=== PATIENT | male | born 1935 | race Caucasian/White ===

== ENCOUNTER 2018-03-25 08:32 | Outpatient (CLI) | payer MEDICARE, BC, SELFPAY ==
[2018-03-25 10:39] LABS: Abs Immature Grans 0.01 k/cumm (0.0-0.09); Absolute Basophil Count 0.03 k/cumm (0.0-0.2); Absolute Eosinophil Count 0.09 k/cumm (0.0-0.7); Absolute Lymphocyte Count 2.15 k/cumm (1.2-3.4); Absolute Monocyte Count 0.55 k/cumm (0.11-0.7); Absolute Neutrophil Count 3.18 k/cumm (1.2-6.7); Basophils % 0.5; Eosinophils % 1.5; HCT 41.8 % (40.0-50.0); HGB 14.1 g/dL (13.5-17.5); Immature Grans % 0.2; Lymphocytes % 35.8; Mean Corp. HGB Concentration 33.7 g/dL (32.0-36.0); Mean Corpuscular Hemoglobin 31.8 pg (27.0-33.0); Mean Corpuscular Volume 94.1 fL (80-95); Mean Platelet Volume 12.2 fL (8.0-11.0); Monocytes % 9.2; Neutrophils % 52.8; Platelet Count 160 x1000/uL (130-400); RBC 4.44 m/cumm (4.50-6.00); White Blood Cell Count 6.01 k/cumm (4.4-10.8)
[2018-03-25 11:10] LABS: ALT 43 U/L (12-78); AST 32 U/L (15-37); Albumin 3.7 g/dL (3.4-5.0); Alkaline Phosphatase 94 U/L (46-116); Anion Gap 9.8 mmol/L (3-11); BUN 18 mg/dL (7-18); CO2 28.2 mmol/L (21.0-32.0); CREATININE 1.14 mg/dL (0.70-1.30); Calcium 9.1 mg/dL (8.5-10.1); Chloride 104 mmol/L (98-107); Cholesterol 105 mg/dL (50-200); Glucose 107 mg/dL (70-100); HDL Cholesterol 35 mg/dL (40-60); LDL CHOLESTEROL 52 mg/dL (<100); Potassium 4.3 mmol/L (3.5-5.1); Sodium 142 mmol/L (136-145); Total Protein 6.7 g/dL (6.4-8.2); Triglyceride 103 mg/dL (30-150)
== END 2018-03-25 08:52 ==
PROVIDERS: Family Medicine; PCP Internal Medicine; Visit Provider Internal Medicine
DX: R41.3 Other amnesia (principal); I10 Essential (primary) hypertension; E78.5 Hyperlipidemia, unspecified; I25.10 Atherosclerotic heart disease of native coronary artery without angina pectoris; I65.29 Occlusion and stenosis of unspecified carotid artery; N52.9 Male erectile dysfunction, unspecified
CPT/HCPCS: 36415; 80053; 80061; 83721; 85025

== ENCOUNTER 2019-06-10 10:57 | Emergency (ER) | payer MEDICARE, BC, SELFPAY ==
[2019-06-10] VITALS (39 sets, daily range): BP systolic 110–157; BP diastolic 50–73; PULSE 57–85; RESP 13–23; TEMP 36.4–36.6; O2SAT 93–99
--- NOTE | 2019-06-10 11:00 | DI.RAD_ITS ---
EXAM: XR PORTABLE CHEST AP CLINICAL HISTORY: stemi TECHNIQUE: 2D digital imaging was performed. COMPARISON: CHEST 2 VIEWS PA,LAT from 04/13/2010 FINDINGS: MEDIASTINUM: Normal. HEART: Normal. PULMONARY VASCULATURE: Normal. LUNGS: Scarring in the right lower lung field. No focal consolidating infiltrates. PLEURAL SPACE: No pleural effusion or pneumothorax. BONE:Normal. OTHER FINDINGS:Sternal wires and mediastinal clips. IMPRESSION: No acute pulmonary findings. DATA REPOSITORY: RADIATION DOSE DELIVERED:
--- NOTE | 2019-06-10 11:09 | W.ED.GENAD ---
Discharge Plan Disposition Patient Disposition: ARIELLA OCHOA ([facility]) Condition: Serious Discharge Details Chief Complaint: Chest Pain Clinical Impression: Unstable angina, Chest pain Primary Care Provider: Lowell Middleton ED Provider: Karlo Larson Home Meds and New Rx's Prescriptions: No Action aspirin [Ecotrin] 325 MG tablet,delayed release (DR/EC) 1 tab PO DAILY RF: 0 metoprolol succinate [Toprol XL] 50 mg tablet extended release 24 hr 50 mg PO DAILY Qty: 90 RF: 3 terazosin 5 mg capsule 5 mg PO DAILY Qty: 90 RF: 3 atorvastatin [Lipitor] 80 mg tablet 80 mg PO HS Qty: 90 RF: 1 Discharge Data Discharge Date/Time-TO BE ENTERED AT DEPARTURE: 06/10/19 14:30 Medical Decision Making Upon my evaluation, this patient had a high probability of imminent or life-threatening deterioration, which required my direct attention, intervention, and personal management. I have personally provided 45 minutes of critical care time exclusive of time spent on separately billable procedures. Time includes review of laboratory data, radiology results, discussion with consultants, and monitoring for potential decompensation. Interventions were performed as documented. 84-year-old male with a past medical history of hypertension high cholesterol who presents today for evaluation of chest pain. Patient does have a history of CABG in the past, today he was out working, and while exerting himself he developed notable chest pain which he felt very similar to his last STEMI, but much worse. He sat down, and after a fair bit of rest he began feeling much better. EMS was called, upon their arrival initial EKG was unremarkable, aspirin was given, no nitroglycerin was given. Subsequent EKG, and then subsequent third EKG by triage licensed practical nurse both showed notable atypical findings concerning for cardiac ischemia. Patient was brought to the ER for further management. Currently states that he is completely chest pain-free, feels fine, would be comfortable going home. He denies any tearing or ripping sensation. He denies any syncope. He denies any numbness tingling or weakness. Pain is located in the center of his chest. As well as the epigastric region which he describes as burning. He denies any vomiting. He has no other complaints at this time. Physical exam demonstrates a well-appearing male, in no acute distress at this time. No significant chest pain currently. He did receive full dose aspirin by EMS. EKG is concerning for Wellens type II, but is not indicative of STEMI at this time, however I am concerned for STEMI equivalent. With no current active chest pain, not meeting criteria for active STEMI we will hold on TNKase at this time, however we will consult [facility] cardiology for emergent recommendations. A do feel that he would benefit from cardiac catheterization on an urgent basis for further management. Of note bedside ultrasound is notably limited, difficult to achieve complete view, but there does appear to be wall motion defect noted in the left ventricle, and at the apex. Patient additionally does state that over the last 2 to 3 months he has been having increased shortness of breath and chest pain/epigastric pain associated with exertion. He states that regularly he will be out shoveling, get notable pain, have to take a break and rest, the pain goes away with this rest, and then returns as soon as he began shoveling significantly again. 11:30 AM Case was discussed with [facility], I spoke with Dr. Uribe of cardiology, she did review the EKG, they do have an EKG from 2012 which she feels is very similar to the EKG from today. She would recommend getting troponins, and discussion of the case with our local awning craftsman Dr. Dao. Since the patient is chest pain-free at this time, we will continue in his work-up. [facility] cardiology does not recommend transfer at this time. At this time the patient's symptoms appearing inconsistent with dissection. We will continue to monitor closely. 12:42 PM Patient remains chest pain-free, however I did get a repeat EKG and this seems to be a notable increase in hyperacute T wave changes especially in V2 through V4. There also does appear to be increase in elevation for lead III, as well as aVF. There is also notable depression continued in aVL. I do feel that these changes are concerning. We have not yet received a call back from dr Dao as he has not yet in the office, however with these findings I will touch base with [facility] again, they do feel that the patient would benefit from transfer and evaluation at a tertiary care facility, including potential catheterization. 1:32 PM I did contact [facility] again, and I spoke with the nurse practitioner Arpita, discussed the case as well as my concern, this time she does feel that admission would be warranted but currently [facility] does not have any beds available. With the patient's dynamic changes, I do feel that prompt evaluation is indicated. She does recommend heparinization but holding off on Plavix loading at this time. We did reach out to the [facility], I discussed the case with Dr. Reynoso, he agrees with the history and concerning findings, and does recommend transfer to the [facility]. Patient will be transferred via triage licensed practical nurse to [facility] for further definitive evaluation and management. He remains chest pain-free at this time. Heparin will be started. I have extensively reviewed the treatment plan with the patient. I have addressed all patient concerns at this time. I have also discussed the plan with the admitting physician and they agree with the current assessment and plan and have agreed to assume responsibility for the patient. All parties demonstrate verbal understanding and agreement with our assessment and plan at this time. At time of transfer the patient was reassessed and continued to demonstrate current medical stability. No signs of acute respiratory distress requiring intubation, hemodynamic instability requiring pressor support, or rapidly declining mental status. The patient is stable for transport. EKG 11: 01 Rate 81, sinus rhythm, intervals normal, nonspecific ST abnormalities with diffuse T wave inversions in V2 through V6, less than a millimeter ST elevation in lead III and aVF, 1 mm of depression in aVL with associated T wave inversion. Concerning for Wellens type II with associated inferior abnormalities EKG 12: 17 Rate 62, intervals normal, sinus rhythm, 1 mm of elevation in V1, notable T wave inversion and depression in HPI General Date/Time Provider Initiated Documentation: 06/10/19 11:09. HPI Narrative: 84-year-old male with a past medical history of hypertension high cholesterol who presents today for evaluation of chest pain. Patient does have a history of CABG in the past, today he was out working, and while exerting himself he developed notable chest pain which he felt very similar to his last STEMI, but much worse. He sat down, and after a fair bit of rest he began feeling much better. EMS was called, upon their arrival initial EKG was unremarkable, aspirin was given, no nitroglycerin was given. Subsequent EKG, and then subsequent third EKG by triage licensed practical nurse both showed notable atypical findings concerning for cardiac ischemia. Patient was brought to the ER for further management. Currently states that he is completely chest pain-free, feels fine, would be comfortable going home. He denies any tearing or ripping sensation. He denies any syncope. He denies any numbness tingling or weakness. Pain is located in the center of his chest. As well as the epigastric region which he describes as burning. He denies any vomiting. He has no other complaints at this time. Related Data Home Medications Medication Instructions Recorded Confirmed aspirin [Ecotrin] 1 tab PO DAILY 07/21/12 06/10/19 metoprolol succinate 50 mg 50 mg PO DAILY #90 tab 02/21/19 06/10/19 tablet,extended release 24 hr terazosin 5 mg capsule 5 mg PO DAILY #90 tab-cap 03/27/19 06/10/19 atorvastatin 80 mg tablet 80 mg PO HS #90 tab-cap 04/21/19 06/10/19 Previous Rx's Medication Instructions Recorded metoprolol succinate 50 mg 50 mg PO DAILY #90 tab 02/21/19 tablet,extended release 24 hr terazosin 5 mg capsule 5 mg PO DAILY #90 tab-cap 03/27/19 atorvastatin 80 mg tablet 80 mg PO HS #90 tab-cap 04/21/19 Allergies Allergy/AdvReac Type Severity Reaction Status Date / Time codeine AdvReac DIZZY/LIGHT Unverified 06/10/19 11:07 HEADED General Stated Complaint: Chest Pain MIGUEL ANGEL: 2 Review of Systems All systems reviewed & are unremarkable except as noted in HPI and below PFSH Surgical History (Updated 01/16/18 @ 14:34 by memloom [place]) AORTOCORNARY BYPASS (~1987) CAROTID ENDARERECTOMY (~2009) Colonoscopy - MAC (~2006) NEG Extraction of cataract B/L Stent placement (~2010) CAD Family History Mother No problems noted. Father No problems noted. Sister No problems noted. Brother No problems noted. Son No problems noted. Daughter No problems noted. Social History (Updated 03/07/18 @ 12:11 by Aylin Oconnor) Smoking/Tobacco Use Status: Former Tobacco Use Quit Date: 04/02/99 Alcohol Intake: current Alcohol Intake frequency: a few times a month Alcohol type: beer, wine and hard liquor Drug use: Never Substance use type: does not use Pets and animals: Yes Pets and animals: cat(s) Frequency: does not exercise Yamile/Episcopal: No preference Special yamile needs: No Do you feel safe at home: Yes Do you feel safe in your relationship?: Yes Exam Narrative Exam Narrative: 1.Const: Well-nourished, Well-developed, appearing stated age 2.Eyes: PERRL, no conjunctival injection, and symmetrical lids. 3.ENT: Atraumatic external nose and ears. Moist MM. Neck: Symmetric, trachea midline, No thyromegaly. 4.CVS: +S1/S2, No murmurs or gallops. Peripheral pulses 2+ and equal in all extremities. Brisk capillary refill in all extremities. 5.RESP: Unlabored respiratory effort. Clear to auscultation bilaterally. No wheezes rales or rhonchi 6.GI: Soft, Nontender/Nondistended, No hepatosplenomegaly. No guarding or rebound. No epigastric tenderness, no pulsatile abdominal mass. 7.MSK: Normocephalic/Atraumatic, Extremities w/o deformity or ttp No cyanosis or clubbing, Normal movement of all extremities 8.Skin: Warm, Dry. No rashes or lesions. 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 Sensation grossly intact, no focal neurologic deficits. 10.Psych: (AAO) x3. Appropriate mood and affect Course Vital Signs Vital signs: Vital Signs Temperature 36.4 C L 06/10/19 10:58 Pulse 85 06/10/19 10:58 Respiratory Rate 14 06/10/19 10:58 Blood Pressure 153/50 H 06/10/19 10:58 Pulse Oximetry 99 06/10/19 10:58 Temperature 36.4 C L 06/10/19 10:58 Temperature Source Temporal Artery Scan 06/10/19 10:58 Pulse 85 06/10/19 10:58 Respiratory Rate 14 06/10/19 10:58 Respiratory Effort Non-Labored 06/10/19 11:02 Blood Pressure 153/50 H 06/10/19 10:58 Blood Pressure Position Supine 06/10/19 10:58 Pulse Oximetry 99 06/10/19 10:58 Oxygen Delivery Method Room Air 06/10/19 10:58 Oxygen Flow Rate 0 06/10/19 10:58 Pain Level 0 06/10/19 10:58
[2019-06-10 11:34] LABS: INR 1.1 (0.9-1.1); PTT Activated 32.1 sec (21.0-31.4); Prothrombin Time 10.6 sec (9.3-11.0)
[2019-06-10 11:51] LABS: ALT 36 U/L (16-63); AST 31 U/L (15-37); Albumin 3.5 g/dL (3.4-5.0); Alkaline Phosphatase 92 U/L (46-116); Anion Gap 6.6 mmol/L (3-11); BUN 17 mg/dL (7-18); Bilirubin, Total 0.6 mg/dL (0.2-1.0); CO2 29.4 mmol/L (21.0-32.0); CREATININE 1.23 mg/dL (0.70-1.30); Calcium 8.5 mg/dL (8.5-10.1); Chloride 105 mmol/L (98-107); Glucose 162 mg/dL (74-106); Lipase 118 U/L (73-393); NT-proBNP 469 pg/mL (<300); Potassium 3.9 mmol/L (3.5-5.1); Sodium 141 mmol/L (136-145); Total Protein 6.8 g/dL (6.4-8.2); Troponin I < 0.05 ng/Ml (<0.06)
[2019-06-10 13:21] LABS: Abs Immature Grans 0.03 k/cumm (0.0-0.09); Absolute Basophil Count 0.02 k/cumm (0.0-0.2); Absolute Eosinophil Count 0.08 k/cumm (0.0-0.7); Absolute Monocyte Count 0.64 k/cumm (0.11-0.7); Absolute Neutrophil Count 3.73 k/cumm (1.2-6.7); Basophils % 0.3; Eosinophils % 1.3; HCT 41.4 % (40.0-50.0); HGB 13.8 g/dL (13.5-17.5); Immature Grans % 0.5 %; Lymphocytes % 29.7; Mean Corp. HGB Concentration 33.3 g/dL (32.0-36.0); Mean Corpuscular Hemoglobin 31.4 pg (27.0-33.0); Mean Corpuscular Volume 94.3 fL (80-95); Mean Platelet Volume 12.3 fL (8.0-11.0); Neutrophils % 58.2; Platelet Count 175 x1000/uL (130-400); RBC 4.39 m/cumm (4.50-6.00); RBC Distribution Width 12.9 % (11.8-14.1)
[2019-06-10 14:20] LABS: Troponin I 0.22 ng/Ml (<0.06)
--- NOTE | 2019-06-10 14:40 | NUR.NOTE ---
Nursing Note: PT report transferred to Cecilia (cupola charger nurse) [facility]. All Pt care, information, treatments, and interventions transferred at this time.
== END 2019-06-10 14:30 | disposition short-term general hospital (02) ==
PROVIDERS: Emergency Provider Student in an Organized Health Care Education/Training Program; PCP Family Medicine
DX: I20.0 Unstable angina (principal); R10.13 Epigastric pain; I10 Essential (primary) hypertension; E78.5 Hyperlipidemia, unspecified; R94.31 Abnormal electrocardiogram [ECG] [EKG]; Z95.1 Presence of aortocoronary bypass graft; I25.2 Old myocardial infarction
CPT/HCPCS: 36415; 80053; 83690; 93005; 96365; 96376; 99291; 71045; 83880; 84484; 85025; 85610; 85730; 93010

== ENCOUNTER 2021-02-11 13:24 | Outpatient (REF) | payer MEDICARE, BC, SELFPAY ==
[2021-02-11 21:31] LABS: BUN 20 mg/dL (7-18); Calcium 8.9 mg/dL (8.5-10.1); Glucose 178 mg/dL (74-106)
[2021-02-11 21:32] LABS: Anion Gap 9.9 mmol/L (3-11); CO2 26.1 mmol/L (21.0-32.0); CREATININE 1.1 mg/dL (0.70-1.30); Calculated LDL 38 mg/dL (<100); Chloride 106 mmol/L (98-107); Cholesterol 111 mg/dL (<200); HDL Cholesterol 33 mg/dL (40-60); Potassium 3.8 mmol/L (3.5-5.1); Sodium 142 mmol/L (136-145); Triglyceride 204 mg/dL (<150)
== END 2021-02-11 13:25 | disposition home or self-care (01) ==
LOC: LBN 13:24
PROVIDERS: PCP Family Medicine; Visit Provider Family Medicine
DX: I10 Essential (primary) hypertension (principal); E78.5 Hyperlipidemia, unspecified; Z00.00 Encounter for general adult medical examination without abnormal findings
CPT/HCPCS: 80048; 80061

== ENCOUNTER 2021-04-15 14:02 | Outpatient (REF) | payer MEDICARE, BC, SELFPAY ==
[2021-04-17 15:43] LABS: COVID-19 RT-PCR UVMMC Result Negative (Negative)
== END 2021-04-15 14:03 | disposition home or self-care (01) ==
LOC: LBN 14:02
PROVIDERS: PCP Family Medicine; Visit Provider Nurse Practitioner
DX: J02.9 Acute pharyngitis, unspecified (principal); Z20.822 Contact with and (suspected) exposure to COVID-19
CPT/HCPCS: U0003; 87070

== ENCOUNTER → 2021-09-29 01:34 | Outpatient (CLI) | payer MEDICARE, BC, SELFPAY ==
--- NOTE | 2021-09-29 06:45 | DI.US_ITS ---
Exam(s) US CAROTID EXAM: US CAROTID CLINICAL HISTORY: f/u carotid stenosis,I65.29. TECHNIQUE: Ultrasound carotids performed using grayscale, color-flow, and spectral Doppler imaging. COMPARISON: No exams were available for comparison FINDINGS: RIGHT CAROTID ARTERY: Plaque: Atherosclerosis present in the carotid bulb and the internal carotid artery. Velocity elevation: See below. LEFT CAROTID ARTERY: Plaque: Calcific plaque seen in the proximal ECA and ICA. Velocity elevation: None. VERTEBRAL ARTERIES: Antegrade flow. Measurements: R Bulb: 442.5cm/s PS / 49.2cm/s ED R CCA: 45.6cm/s PS / 8.4cm/s ED R ECA: 439.6cm/s PS / 34.7cm/s ED R ICA Prox: 43.1cm/s PS /6.3cm/s ED R ICA Mid: Undetectable. R ICA Distal: Undetectable. Eight that R Vert: 53.3cm/s PS / 12.9cm/s ED R SVR: 0.95 R DVR: 0.75 L Bulb: 124.7cm/s PS /8.4cm/s ED L CCA: 106cm/s PS / 12.2cm/s ED L ECA: 156.2cm/s PS /4.3cm/s ED L ICA Prox:108.7cm/s PS / 25.5cm/s ED L ICA Mid: 131.5cm/sPS / 36.8cm/s ED L ICA Distal: 154.6cm/s PS / 26.3cm/s ED L Vert: 75.2cm/s PS / 14.9cm/s ED L SVR: 1.46 L DVR: 2.16 IMPRESSION: 1. No detectable flow seen beyond the proximal right internal carotid artery. 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 2. Findings suggestive of 50-69 percent narrowing of the left internal carotid artery. Criteria for Carotid Stenosis: Normal: ICA PSV <125 cm/s no plaque or intimal thickening is visible. <50% stenosis: ICA PSV <125 cm/s and plaque or intimal thickening is visible. 50-69% stenosis: ICA PSV is 125-250 cm/s and plaque is visible. >70% stenosis to near occlusion: ICA PSV >250 cm/s with visible plaque and luminal narrowing. DATA REPOSITORY:
== END ==
PROVIDERS: PCP Family Medicine; Visit Provider Family Medicine
DX: I65.23 Occlusion and stenosis of bilateral carotid arteries (principal)
CPT/HCPCS: 93880

== ENCOUNTER 2022-02-02 02:59 | Outpatient (CLI) | payer MEDICARE, BC, SELFPAY ==
[2022-02-02 12:39] LABS: Anion Gap 6.7 mmol/L (3-11); BUN 21 mg/dL (7-18); CO2 29.3 mmol/L (21.0-32.0); CREATININE 1.2 mg/dL (0.70-1.30); Calcium 9.2 mg/dL (8.5-10.1); Calculated LDL 53 mg/dL (<100); Chloride 106 mmol/L (98-107); Cholesterol 120 mg/dL (<200); Estimated GFR 59.26 (mL/min/1.73m2); Glucose 137 mg/dL (74-106); HDL Cholesterol 38 mg/dL (40-60); Potassium 3.9 mmol/L (3.5-5.1); Sodium 142 mmol/L (136-145); Triglyceride 145 mg/dL (<150)
== END 2022-02-02 03:00 | disposition home or self-care (01) ==
LOC: LOS 02:59
PROVIDERS: PCP Family Medicine; Visit Provider Family Medicine
DX: E78.5 Hyperlipidemia, unspecified (principal); Z00.00 Encounter for general adult medical examination without abnormal findings; I10 Essential (primary) hypertension
CPT/HCPCS: 36415; 80048; 80061

== ENCOUNTER 2022-06-04 09:48 | Emergency (ER) | payer MEDICARE, SELFPAY ==
[2022-06-04] VITALS (199 sets, daily range): BP systolic 111–171; BP diastolic 48–110; PULSE 60–72; RESP 11–29; TEMP 36.3; O2SAT 91–100
--- NOTE | 2022-06-04 09:45 | DI.RAD_ITS ---
Exam(s) XR PORTABLE CHEST AP EXAM: XR PORTABLE CHEST AP CLINICAL HISTORY: chest pain. TECHNIQUE: 2D digital imaging was performed. COMPARISON: CR XR PORTABLE CHEST AP from 06/10/2019 FINDINGS: Single AP portable view. Sternotomy wires and evidence of CABG again noted. Cardiac pad over the left side of the chest. Heart size is upper normal. The mediastinum is not widened. Lungs are clear. No infiltrates nor obvious pleural effusions. No evidence of pulmonary edema. No pneumothorax. IMPRESSION: No acute pulmonary findings on this single AP portable view of the chest. Previous sternotomy and CABG. DATA REPOSITORY: RADIATION DOSE DELIVERED:
--- NOTE | 2022-06-04 09:45 | RT.EKG_ITS ---
APPROVED REPORT Exam: Resting ECG Reason for Exam: chest pain Patient Location: E HR:67 bpm ECG Measurements Heart Rate 67 AXIS NV 156 P 20 QRSd 90 QRS 17 QT 428 T 145 QTc 453 Conclusion Sinus rhythm...normal P axis, V-rate 60- 99 Probable left atrial enlargement...P >50mS, <-0.10mV V1 Repol abnrm suggests ischemia, diffuse leads...ST-T neg, ant/lat/inf sinus rhythm, normal axis, biphasic V3, deep inverted T waves lateral lead, with depressions; mild el evation lead III
--- NOTE | 2022-06-04 09:59 | W.ED.GENAD ---
Discharge Plan Disposition Patient Disposition: Transfer-Acute Inpatient Care Specific Acute Inpt Facility: [facility] [[email or web address]] Condition: Stable Discharge Details Chief Complaint: Chest Pain Clinical Impression: Ventricular tachycardia, Chest pain Primary Care Provider: Keira Grande ED Provider: Sergio Contreras Home Meds and New Rx's Prescriptions: No Action aspirin [Ecotrin] 325 MG tablet,delayed release (DR/EC) 1 tab PO DAILY terazosin 5 mg capsule 5 mg PO DAILY Qty: 90 3RF metoprolol succinate [Toprol XL] 50 mg tablet extended release 24 hr 50 mg PO DAILY Qty: 90 3RF atorvastatin [Lipitor] 80 mg tablet 80 mg PO HS Qty: 90 3RF Medical Decision Making 87-year-old male history of CABG presents with anterior chest pain over the last day worsening this morning, nonexertional nonradiating no associated shortness of breath nausea or vomiting. Hemodynamically stable however mildly uncomfortable. EKG showing deep T wave inversions 1 aVL T wave inversions and ST depressions in V4 V5 V6 and biphasic T waves in V3 concerning for lateral ischemia high clinical suspicion for ACS lower suspicion for PE or aortic pathology pneumothorax or pneumonia. Stat chest x-ray labs aspirin pending first troponin will likely start heparin, have placed urgent call to [facility] cardiology for possible transfer for intervention. Disposition pending reassessment results reassessment of symptomatology and consultation with cardiology. 11: 05 patient has had multiple rounds of sustained ventricular tachycardia lasting several seconds at a time has maintained mental status and blood pressure however does have some presyncopal sensations, placed on pads, loaded with 150 amiodarone IV over 10 minutes and started on 1 adalid per minute IV infusion, have discussed case with [facility] curriculum coordinator Dr. Perez who is in contact with interventionalists team to discuss further treatment plan. Have had goals of care discussion with both patient and patient's family patient is full code and amenable to interventions are currently working on securing transportation options as [employer] is not flying today due to weather. 14: 00 patient resting comfortably remains hemodynamically stable. Intermittent PVCs however no further runs of V. tach after starting amiodarone. Patient was preliminarily accepted at [facility] for admission however bed availability may not be available for another 24 hours per transfer center for this reason I placed a consultation to [facility] [[email or web address]] where patient had his initial CABG years past, spoke with curriculum coordinator Dr. Schneider who recommends ER to ER transfer discussed case with ER physician Dr. Peralta who is excepted transfer. Family and patient amenable to transfer. Are calling for transportation currently. HPI General Date/Time Provider Initiated Documentation: 06/04/22 09:51. HPI Narrative: 87-year-old male history of CABG, hypertension hyperlipidemia, presents brought in for active chest pain over the last day worsening this morning upon waking up, nonexertional anterior nature, no associated diaphoresis or shortness of breath or nausea. Related Data Home Medications Medication Instructions Recorded Confirmed aspirin 325 mg tablet,delayed 1 tab PO DAILY 07/21/12 06/04/22 release (Ecotrin) terazosin 5 mg capsule 5 mg PO DAILY #90 tab-caps 03/30/21 06/04/22 metoprolol succinate 50 mg 50 mg PO DAILY #90 tabs 02/28/22 06/04/22 tablet,extended release 24 hr (Toprol XL) atorvastatin 80 mg tablet (Lipitor) 80 mg PO HS #90 tab-caps 04/17/22 06/04/22 Previous Rx's Medication Instructions Recorded terazosin 5 mg capsule 5 mg PO DAILY #90 tab-caps 03/30/21 metoprolol succinate 50 mg 50 mg PO DAILY #90 tabs 02/28/22 tablet,extended release 24 hr (Toprol XL) atorvastatin 80 mg tablet (Lipitor) 80 mg PO HS #90 tab-caps 04/17/22 Allergies Allergy/AdvReac Type Severity Reaction Status Date / Time codeine AdvReac DIZZY/LIGHT Verified 02/06/22 16:27 HEADED General MIGUEL ANGEL: 2 Review of Systems Narrative: Review of Systems Constitutional: negative Eyes: negative ENT: negative Cardiovascular: Chest pain Respiratory: negative Gastrointestinal: negative : negative Musculoskeletal: negative Skin: negative Neurologic: negative Psych: negative PFSH All Active Problems (Updated 06/04/22 @ 14:03 by Sergio Contreras MD) Ventricular tachycardia (Chronic) Chest pain (Acute) Memory impairment (Chronic) Hyperlipidemia (Acute 07/29/12) Essential hypertension (Acute 01/28/13) Depressive disorder (Acute) seasonal Benign prostatic hyperplasia without lower urinary tract symptoms (Chronic 07/29/12) Medical History Carotid artery stenosis endarterectomy-left Color vision deficiency red-green Coronary atherosclerosis of [place] coronary vessel (07/29/12) CABG 1981 AND A STENT 2009 History of tobacco use Surgical History (Updated 02/11/21 @ 10:45 by Keira Grande MD) History of cataract removal with insertion of prosthetic lens History of coronary artery bypass surgery Status post carotid endarterectomy Family History Mother No problems noted. Father No problems noted. Sister No problems noted. Brother No problems noted. Son No problems noted. Daughter No problems noted. Social History Smoking/Tobacco Use Status: Former Tobacco Use Quit Date: 04/02/99 Smoking risk assessment performed?: Yes Alcohol Intake: former Details: 1999 Drug use: Never Substance use type: does not use Household members: spouse Housing: house Number of Children: 8 number of grandchildren: 8 Education Level: high school current occupation: worked at [employer] x 25 yrs, then worked at [employer]. Pets and animals: Yes Pets and animals: cat(s) Frequency: does not exercise Yamile/Caodaism: No preference Special yamile needs: No Do you feel safe at home: Yes Do you feel safe in your relationship?: Yes Exam Narrative Exam Narrative: Physical Examination General: alert, awake, cooperative, resting comfortably, no acute distress HEENT: normocephalic, atraumatic; PERRL, EOM intact, conjunctiva normal; no nasal discharge; moist mucous membranes, oral and pharyngeal mucosa normal, tolerating secretions Neck: supple, trachea midline; full ROM Chest: normal to inspection; old midline sternotomy scar Respiratory: normal respiratory effort, speaking in full sentences, clear to auscultation, no wheezing, rales or rhonchi Cardiac: regular rate, regular rhythm, S1S2 intact, no murmurs rubs or gallops; regular strong radial pulses GI: abdomen soft, non-tender, non-distended; no palpable mass or hepatosplenomegaly Skin: no lesions, rashes or trauma appreciated Neuro: AAOx3, normal speech, moving all extremities Psych: Appropriate mood and affect
[2022-06-04 10:15] LABS: Abs Immature Grans 0.03 10^3/uL (0.0-0.06); Absolute Basophil Count 0.04 10^3/uL (0.0-0.2); Absolute Eosinophil Count 0.09 10^3/uL (0.0-0.7); Absolute Lymphocyte Count 2.61 10^3/uL (1.2-3.4); Absolute Monocyte Count 0.66 10^3/uL (0.1-0.8); Absolute Neutrophil Count 3.74 10^3/uL (1.2-6.7); Basophils % 0.6; Eosinophils % 1.3; HCT 41.2 % (40.0-50.0); HGB 13.7 g/dL (13.5-17.5); Immature Grans % 0.4; Lymphocytes % 36.4; MCH 31.5 pg (27.0-33.0); MCHC 33.3 % (32.0-36.0); MCV 95 fL (80-95); MPV 11.5 fL (8.0-11.0); Monocytes % 9.2; Neutrophils % 52.1; Platelet Count 171 10^3/uL (130-400); RBC 4.35 10^6/uL (4.36-5.78); RDW 12.6 % (11.8-14.1); RDW-SD 43.8 fL; WBC 7.17 10^3/uL (4.4-10.8)
--- NOTE | 2022-06-04 10:21 | NUR.NOTE ---
pt having runs of vtach on the monitor. MD aware and at bedside. defib pads placed on pt. pt continues to remain awake and alert.
[2022-06-04 10:29] LABS: PTT Activated 34.3 sec (21.5-31.9); Prothrombin Time 10.6 sec (9.3-11.0)
[2022-06-04] MEDS: Aspirin 81 MG CHEW 324 MG CH (10:29)
[2022-06-04] MEDS: Amiodarone 150 MG/3 ML VIAL IVP (10:30)
[2022-06-04 10:37] LABS: ALT 32 U/L (16-63); AST 27 U/L (15-37); Albumin 3.7 g/dL (3.4-5.0); Alkaline Phosphatase 100 U/L (46-116); BUN 19 mg/dL (7-18); Bilirubin, Total 0.6 mg/dL (0.2-1.0); CREATININE 1.3 mg/dL (0.70-1.30); Calcium 9.1 mg/dL (8.5-10.1); Chloride 106 mmol/L (98-107); Glucose 120 mg/dL (74-106); NT-proBNP 575 pg/mL (<300); Potassium 3.8 mmol/L (3.5-5.1); Sodium 142 mmol/L (136-145); Total Protein 7.1 g/dL (6.4-8.2); Troponin I < 50 ng/L (<or=60)
[2022-06-04] MEDS: Amiodarone in Dextrose 360 MG/200 ML BAG 33.333 MG IV (10:42)
--- NOTE | 2022-06-04 10:45 | RT.EKG_ITS ---
APPROVED REPORT Exam: Resting ECG Reason for Exam: repeat, recurrent v tach Patient Location: E HR:63 bpm ECG Measurements Heart Rate 63 AXIS NM 180 P 23 QRSd 99 QRS 25 QT 446 T 155 QTc 455 Conclusion Sinus rhythm...normal P axis, V-rate 60- 99 Probable left atrial enlargement...P >50mS, <-0.10mV V1 Repol abnrm, prob ischemia, anterolateral lds...ST dep, T neg, I aVL V2-V6 ST elevation, consider inferior injury...ST >0.08mV, II III aVF sinus rhythm, normal axis, deep t waves, lateral leads, st elevation III
--- NOTE | 2022-06-04 11:17 | DI.VRAD_ITS ---
PROCEDURE INFORMATION: Exam: XR Chest Exam date and time: 06/04/2022 10:32 AM Age: 87 years old Clinical indication: Pain; Other: Cp; Prior surgery; Surgery date: 6+ months TECHNIQUE: Imaging protocol: Radiologic exam of the chest. Views: 1 view. COMPARISON: CR XR PORTABLE CHEST AP 06/10/2019 11:11 AM FINDINGS: Lungs: Stable mild opacities in the right base may represent scar or atelectasis as they were present in 2019. No acute process Pleural spaces: Unremarkable. No pleural effusion. No pneumothorax. Heart/Mediastinum: Unremarkable. No cardiomegaly. Bones/joints: Median sternotomy IMPRESSION: Stable mild opacities in the right base may represent scar or atelectasis as they were present in 2019. No acute process Dictated and Authenticated by: Dom Arshad MD. Ordering:CALE Hill MD
[2022-06-04 13:14] LABS: Troponin I < 50 ng/L (<or=60)
--- NOTE | 2022-06-04 14:11 | NUR.NOTE ---
pt has remained stable after bolus of amiodarone and with an amiodarone drip currently infusing. pt states he feels better. pt has been continuously monitored
--- NOTE | 2022-06-05 07:14 | NUR.NOTE ---
Nursing Note: Accessed patient chart to determine how many EKG orders were in the chart from the ED. There was an outstanding EKG in ordered status. There are no EKG's in the [employer] system that are outstanding. EKG order was deleted.
== END 2022-06-04 14:35 | disposition short-term general hospital (02) ==
PROVIDERS: Emergency Provider Emergency Medicine; PCP Family Medicine
DX: I47.20 Ventricular tachycardia, unspecified (principal); I10 Essential (primary) hypertension; Z95.1 Presence of aortocoronary bypass graft; R07.9 Chest pain, unspecified
CPT/HCPCS: 80053; 93005; 71045; 83880; 84484; 85025; 85610; 85730; 93010; J3490

== ENCOUNTER 2022-09-11 12:52 | Outpatient (CLI) | payer MEDICARE, SELFPAY ==
--- NOTE | 2022-09-11 12:45 | RT.EKG_ITS ---
APPROVED REPORT Exam: Resting ECG Reason for Exam: cardiac evaluation Patient Location: O HR:62 bpm ECG Measurements Heart Rate 62 AXIS DE 150 P 22 QRSd 99 QRS 18 QT 442 T 141 QTc 449 Conclusion Sinus rhythm...normal P axis, V-rate 50- 99 Abnormal R-wave progression, early transition...QRS area>0 in V2 Inferior infarct, Left ventricular hypertrophy with repolarization abnormalities
== END 2022-09-11 12:53 | disposition home or self-care (01) ==
LOC: DI.CARD 12:52
PROVIDERS: PCP Family Medicine; Visit Provider Internal Medicine Cardiovascular Disease
DX: I10 Essential (primary) hypertension (principal); I25.10 Atherosclerotic heart disease of native coronary artery without angina pectoris; Z13.6 Encounter for screening for cardiovascular disorders
CPT/HCPCS: 93010

== ENCOUNTER → 2022-09-11 13:53 | Outpatient (BNVA) | payer MEDICARE, SELFPAY | PROVIDERS: PCP Family Medicine; Referring Provider Family Medicine; Visit Provider Internal Medicine Cardiovascular Disease | DX: R60.0 Localized edema (principal); Z95.810 Presence of automatic (implantable) cardiac defibrillator; I25.10 Atherosclerotic heart disease of native coronary artery without angina pectoris | CPT/HCPCS: 93005; 99203; 99214 ==

== ENCOUNTER 2023-01-17 09:25 | Outpatient (CLI) | payer MEDICARE, SELFPAY ==
--- NOTE | 2023-01-17 09:15 | RT.EKG_ITS ---
APPROVED REPORT Exam: Resting ECG Reason for Exam: VT Patient Location: O HR:51 bpm ECG Measurements Heart Rate 51 AXIS HI 58 P -5 QRSd 98 QRS 14 QT 463 T 142 QTc 427 Conclusion Sinus rhythm...normal P axis, V-rate 50- 99 Short HI interval...HI <110mS Abnormal R-wave progression, early transition...QRS area>0 in V2 LVH with secondary repolarization abnormality...multi-LVH criteria, abnrm ST-T Borderline ST elevation, inferior leads...ST >0.06mV, II III aVF Baseline wander in lead(s) V4
== END 2023-01-17 09:26 | disposition home or self-care (01) ==
LOC: DI.CARD 09:27
PROVIDERS: PCP Family Medicine; Visit Provider Physician Assistant
DX: I25.10 Atherosclerotic heart disease of native coronary artery without angina pectoris (principal); I47.20 Ventricular tachycardia, unspecified
CPT/HCPCS: 93010

== ENCOUNTER → 2023-01-17 09:32 | Outpatient (BNVA) | payer MEDICARE, SELFPAY | PROVIDERS: PCP Family Medicine; Referring Provider Family Medicine; Visit Provider Physician Assistant | DX: Z51.81 Encounter for therapeutic drug level monitoring (principal); Z79.899 Other long term (current) drug therapy; Z95.810 Presence of automatic (implantable) cardiac defibrillator; I47.20 Ventricular tachycardia, unspecified | CPT/HCPCS: 93005; 99214 ==

== ENCOUNTER → 2023-01-18 12:28 | Outpatient (BNVA) | payer MEDICARE, SELFPAY | PROVIDERS: PCP Family Medicine; Referring Provider Family Medicine; Visit Provider Internal Medicine Cardiovascular Disease | DX: I25.810 Atherosclerosis of coronary artery bypass graft(s) without angina pectoris (principal); I47.20 Ventricular tachycardia, unspecified; Z95.810 Presence of automatic (implantable) cardiac defibrillator; I10 Essential (primary) hypertension | CPT/HCPCS: 99213 ==

== ENCOUNTER 2023-07-18 07:46 | Outpatient (CLI) | payer MEDICARE, SELFPAY ==
--- NOTE | 2023-07-18 07:45 | RT.EKG_ITS ---
APPROVED REPORT Exam: Resting ECG Reason for Exam: CAD Patient Location: O HR:56 bpm ECG Measurements Heart Rate 56 AXIS TN 179 P 18 QRSd 100 QRS 17 QT 467 T 133 QTc 451 Conclusion Sinus rhythm...normal P axis, V-rate 50- 99 Abnormal R-wave progression, early transition...QRS area>0 in V2 Probable LVH with secondary repol abnrm...multiple LVH criteria ST elevation, consider inferior injury...ST >0.08mV, II III aVF Baseline wander in lead(s) V1,V3
== END 2023-07-18 07:47 | disposition home or self-care (01) ==
LOC: DI.CARD 07:47
PROVIDERS: PCP Family Medicine; Visit Provider Student in an Organized Health Care Education/Training Program
DX: I25.810 Atherosclerosis of coronary artery bypass graft(s) without angina pectoris (principal); I47.20 Ventricular tachycardia, unspecified; Z95.810 Presence of automatic (implantable) cardiac defibrillator
CPT/HCPCS: 93010

== ENCOUNTER → 2023-07-18 10:25 | Outpatient (BNVA) | payer MEDICARE, SELFPAY | PROVIDERS: PCP Family Medicine; Referring Provider Family Medicine; Visit Provider Student in an Organized Health Care Education/Training Program | DX: Z45.010 Encounter for checking and testing of cardiac pacemaker pulse generator [battery] (principal); I25.810 Atherosclerosis of coronary artery bypass graft(s) without angina pectoris | CPT/HCPCS: 93005; 93282 ==

== ENCOUNTER 2023-07-18 12:29 | Outpatient (CLI) | payer MEDICARE, SELFPAY ==
[2023-07-18 12:29] LABS: ALT 59 U/L (16-63); AST 40 U/L (15-37); Albumin 3.3 g/dL (3.4-5.0); Alkaline Phosphatase 112 U/L (46-116); BUN 22 mg/dL (7-18); Bilirubin, Direct 0.2 mg/dL (0.0-0.2); Bilirubin, Total 0.7 mg/dL (0.2-1.0); CREATININE 1.4 mg/dL (0.70-1.30); Calcium 8.4 mg/dL (8.5-10.1); Chloride 107 mmol/L (98-107); Estimated GFR 48.65 (mL/min/1.73m2); Glucose 136 mg/dL (74-106); Potassium 4.5 mmol/L (3.5-5.1); Sodium 142 mmol/L (136-145); TSH (W/Ref FT4) 0.61 uIU/mL (0.36-3.74); Total Protein 6.5 g/dL (6.4-8.2)
== END 2023-07-18 12:30 | disposition home or self-care (01) ==
LOC: LBO 12:29
PROVIDERS: PCP Family Medicine; Visit Provider Physician Assistant
DX: Z79.899 Other long term (current) drug therapy (principal); Z51.81 Encounter for therapeutic drug level monitoring
CPT/HCPCS: 36415; 80053; 80076; 84443

== ENCOUNTER → 2023-09-20 13:01 | Outpatient (BNVA) | payer MEDICARE, SELFPAY | PROVIDERS: PCP Family Medicine; Visit Provider Internal Medicine Cardiovascular Disease | DX: Z95.810 Presence of automatic (implantable) cardiac defibrillator (principal); I25.810 Atherosclerosis of coronary artery bypass graft(s) without angina pectoris | CPT/HCPCS: 99213 ==

== ENCOUNTER 2024-02-14 11:39 | Outpatient (CLI) | payer MEDICARE, SELFPAY ==
--- NOTE | 2024-02-14 13:16 | DI.CT_ITS ---
Exam(s) CT HEAD WO EXAM: CT HEAD WO CLINICAL HISTORY: new delirium G30.1 ALZHEIMERS F02.B0 DEMENTIA W19.XXXA FALL R41.0. TECHNIQUE: Imaging Protocol: Axial computed tomography images with coronal and sagittal reformatted images were created and reviewed COMPARISON: CT HEAD WITHOUT CONTRAST from 05/02/2010 FINDINGS: Ventricles and Extra axial spaces: Normal in size and morphology for the patient's age. Hemorrhage: None. Cerebral parenchyma: No evidence of acute infarct or mass. Moderate atrophy. Midline shift: None. Brainstem/Cerebellum: Normal. Calvarium: Normal. Visualized Paranasal sinuses:Clear. Mastoids: Clear. Soft Tissues: Unremarkable. ORBITS: Unremarkable. PITUITARY: Not enlarged. IMPRESSION: No acute intracranial process. RADIATION DOSE DELIVERED: 813.7mGy.cm Total DLP DATA REPOSITORY: All CT scans at this facility are submitted to the National Radiology Data Registry (NRDR) Dose Index Registry (DIR) with the [employer] (ACR). RADIATION OPTIMIZATION: All CT scans at this facility use at least one of these dose optimization te chniques: automated exposure control; mA and/or kV adjustment per patient size (includes targeted exa ms where dose is matched to clinical indication); or iterative reconstruction.
== END 2024-02-14 11:59 ==
LOC: DI 11:39
PROVIDERS: PCP Family Medicine; Visit Provider Family Medicine
DX: G30.1 Alzheimer's disease with late onset (principal); F02.B0 Dementia in other diseases classified elsewhere, moderate, without behavioral disturbance, psychotic disturbance, mood disturbance, and anxiety; W19.XXXA Unspecified fall, initial encounter
CPT/HCPCS: 70450

== ENCOUNTER 2024-03-19 07:47 | Outpatient (CLI) | payer MEDICARE, SELFPAY ==
--- NOTE | 2024-03-19 07:45 | RT.EKG_ITS ---
APPROVED REPORT Exam: Resting ECG Reason for Exam: CAD, VT Patient Location: O HR:54 bpm ECG Measurements Heart Rate [address] 167 P 8 QRSd 103 QRS 6 QT 460 T 147 QTc 436 Conclusion Sinus rhythm...normal P axis, V-rate 50- 99 Abnormal R-wave progression, early transition...QRS area>0 in V2 LVH with secondary repolarization abnormality...multi-LVH criteria, abnrm ST-T Borderline ST elevation, inferior leads...ST >0.06mV, II III aVF
== END 2024-03-19 07:48 | disposition home or self-care (01) ==
LOC: DI.CARD 07:48
PROVIDERS: PCP Family Medicine; Visit Provider Student in an Organized Health Care Education/Training Program
DX: I25.810 Atherosclerosis of coronary artery bypass graft(s) without angina pectoris (principal)
CPT/HCPCS: 93010

== ENCOUNTER → 2024-03-19 08:49 | Outpatient (BNVA) | payer MEDICARE, SELFPAY | PROVIDERS: PCP Family Medicine; Referring Provider Family Medicine; Visit Provider Student in an Organized Health Care Education/Training Program | DX: Z79.899 Other long term (current) drug therapy (principal); Z95.810 Presence of automatic (implantable) cardiac defibrillator; I25.810 Atherosclerosis of coronary artery bypass graft(s) without angina pectoris | CPT/HCPCS: 93005; 93282 ==

== ENCOUNTER 2024-03-19 10:22 | Outpatient (CLI) | payer MEDICARE, SELFPAY ==
[2024-03-19 12:21] LABS: ALT 64 U/L (16-63); AST 56 U/L (15-37); Albumin 3.2 g/dL (3.4-5.0); Alkaline Phosphatase 102 U/L (46-116); Anion Gap 7.2 mmol/L (3-11); BUN 25 mg/dL (7-18); Bilirubin, Direct 0.2 mg/dL (0.0-0.2); Bilirubin, Total 0.86 mg/dL (0.2-1.0); CO2 27.8 mmol/L (21.0-32.0); CREATININE 1.6 mg/dL (0.70-1.30); Calcium 8.7 mg/dL (8.5-10.1); Chloride 107 mmol/L (98-107); Estimated GFR 41.19 (mL/min/1.73m2); Glucose 95 mg/dL (74-106); Potassium 4.5 mmol/L (3.5-5.1); Sodium 142 mmol/L (136-145); TSH 0.59 uIU/mL (0.36-3.74); Total Protein 6.9 g/dL (6.4-8.2)
== END 2024-03-19 10:23 | disposition home or self-care (01) ==
LOC: LBO 10:22
PROVIDERS: PCP Family Medicine; Visit Provider Student in an Organized Health Care Education/Training Program
DX: Z79.899 Other long term (current) drug therapy (principal)
CPT/HCPCS: 36415; 80053; 80076; 84443

== ENCOUNTER 2024-05-28 10:22 | Emergency (ER) | payer MEDICARE, SELFPAY ==
[2024-05-28] VITALS (8 sets, daily range): BP systolic 111–183; BP diastolic 38–65; PULSE 47–54; RESP 14–16; TEMP 36.5; O2SAT 93–94
--- NOTE | 2024-05-28 10:15 | DI.CT_ITS ---
Exam(s) CT HEAD CERVICAL SPINE WO EXAM: CT HEAD CERVICAL SPINE WO CLINICAL HISTORY: fall, dizzy, unknown LOC. TECHNIQUE: Imaging Protocol: Axial computed tomography images with coronal and sagittal reformatted images were created and reviewed COMPARISON: CT CT HEAD WO from 02/14/2024 FINDINGS: Head CT Ventricles and Extra axial spaces: Normal in size and morphology for the patient's age. Hemorrhage: None. Cerebral parenchyma: No evidence of mass or acute infarct. Moderate atrophy consistent patient's a ge. Midline shift: None. Brainstem/Cerebellum: Normal. Calvarium: Normal. Visualized Paranasal sinuses/Mastoids: Clear. Soft tissues: Unremarkable. Cervical Spine CT BONES: Vertebral body heights are maintained. Alignment is normal. There is no evidence of acute frac ture. Degenerative disc changes and facet degenerative changes are seen . SOFT TISSUES: No paraspinal hematoma. The airway appears intact. IMPRESSION: Head CT: No acute abnormality. C-spine CT: Degenerative changes, no acute abnormality. RADIATION DOSE DELIVERED: 1,108.08mGy.cm Total DLP DATA REPOSITORY: All CT scans at this facility are submitted to the National Radiology Data Registry (NRDR) Dose Index Registry (DIR) with the [employer] (ACR). RADIATION OPTIMIZATION: All CT scans at this facility use at least one of these dose optimization te chniques: automated exposure control; mA and/or kV adjustment per patient size (includes targeted exa ms where dose is matched to clinical indication); or iterative reconstruction.
--- NOTE | 2024-05-28 10:15 | RT.EKG_ITS ---
APPROVED REPORT Exam: Resting ECG Reason for Exam: dizzy Patient Location: E HR:49 bpm ECG Measurements Heart Rate 49 AXIS DC 176 P 39 QRSd 100 QRS 33 QT 493 T 133 QTc 447 Conclusion Sinus bradycardia, rate 49 No interval abnormalities T wave inversion I, aVL, V5, V6, unchanged from priors No STEMI
[2024-05-28 10:53] LABS: Abs Immature Grans 0.03 10^3/uL (0.0-0.06); Absolute Basophil Count 0.03 10^3/uL (0.0-0.2); Absolute Eosinophil Count 0.07 10^3/uL (0.0-0.7); Absolute Lymphocyte Count 1.51 10^3/uL (1.2-3.4); Absolute Monocyte Count 0.68 10^3/uL (0.1-0.8); Absolute Neutrophil Count 3.67 10^3/uL (1.2-6.7); Basophils % 0.5 %; Eosinophils % 1.2 %; HCT 35.8 % (40.0-50.0); HGB 11.9 g/dL (13.5-17.5); Immature Grans % 0.5 %; Lymphocytes % 25.2 %; MCH 32.1 pg (27.0-33.0); MCHC 33.2 % (32.0-36.0); MCV 97 fL (80-95); MPV 11.9 fL (8.0-11.0); Monocytes % 11.4 %; Neutrophils % 61.2 %; Platelet Count 155 10^3/uL (130-400); RBC 3.71 10^6/uL (4.36-5.78); RDW 13.5 % (11.8-14.1); RDW-SD 47.6 fL; WBC 5.99 10^3/uL (4.4-10.8)
[2024-05-28 11:11] LABS: ALT 49 U/L (16-63); AST 42 U/L (15-37); Albumin 3.1 g/dL (3.4-5.0); Alkaline Phosphatase 103 U/L (46-116); Anion Gap 5.5 mmol/L (3-11); BUN 26 mg/dL (7-18); Bilirubin, Total 0.61 mg/dL (0.2-1.0); CO2 29.5 mmol/L (21.0-32.0); CREATININE 1.3 mg/dL (0.70-1.30); Calcium 8.8 mg/dL (8.5-10.1); Chloride 108 mmol/L (98-107); Estimated GFR 52.84 (mL/min/1.73m2); Glucose 102 mg/dL (74-106); Magnesium 2.1 mg/dL (1.8-2.4); Potassium 4.1 mmol/L (3.5-5.1); Sodium 143 mmol/L (136-145); Total Protein 6.4 g/dL (6.4-8.2); Troponin I 23 ng/L (<or=76)
--- NOTE | 2024-05-28 11:14 | W.ED.GENAD ---
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 -hb triamcinolone acetonide 0.5 % ointment 1 applic topical BID Qty: 15 1RF Rx Instructions: use bid for 2 weeks and then 1-2 times weekly thereafter. amiodarone 200 mg tablet 200 mg PO DAILY Qty: 30 5RF metoprolol tartrate 25 mg tablet 25 mg PO BID Qty: 180 3RF Rx Instructions: 06/23/22 RX'd by [facility]. -hb atorvastatin [Lipitor] 80 mg tablet 80 mg PO HS Qty: 90 3RF terazosin 5 mg capsule 5 mg PO DAILY Qty: 90 3RF Discharge Instructions Instructions: Preventing Falls ED Additional Instructions: You were seen in the emergency department today for evaluation after a fall. In our department you had a full physical examination performed, had laboratory studies that were reassuring, and an EKG that is typical for you. You had a CT scan of your brain and neck that did not show any abnormalities that explain your fall, and were able to get up and walk about the ED without issues. At this time it is safe for you to go home and follow-up with your outpatient providers to discuss this visit and any symptoms that change, worsen, or persist. Thank you for allowing us to be part of your care. HPI General Mode of arrival: EMS. Date/Time Provider Initiated Documentation: 05/28/24 10:27. Limitations to Documentation: no limitations. Information obtained by: patient, EMS and old records reviewed. HPI Narrative: HPI: Tim is an 89-year-old male patient who has a past medical history significant for pacemaker defibrillator, BPH, hypertension, CAD, and Alzheimer's who is presenting for evaluation after a fall. The patient was reported to have been sitting on the couch, is not sure how he fell from the couch but thinks he might of lost consciousness. He experienced an episode of dizziness, unclear if it was before or after this event. EMS was summoned and the patient was not complaining of any pain in his head, neck, or back. He is exceptionally hard of hearing. He states he was in his normal state of health prior to this event, has been taking all of his medications as prescribed, which include metoprolol and amiodarone, no blood thinning medications. Exam: Gen: awake and alert, in no apparent distress. Appears well nourished. HEENT: PERRL, EOMs full and without nystagmus. External ears and nose normal, mucous membranes moist. Neck: Supple, full range of motion, no observable masses Lungs: No increased work of breathing, lung sounds clear and equal bilaterally without wheezes, rhonchi, or rales. CV: Heart with bradycardic rate and regular rhythm, no murmurs auscultated. Strong and symmetrical radial pulses. Abdomen: Soft, nondistended, non-tended to palpation. No rigidity, rebound tenderness, or guarding. MSK: No joint swelling, no redness. Full ROM without limitation, no external traumatic findings. Skin: No rashes or lesions to visualized skin. Normal color, warm, and dry. Neuro: Cranial nerves II-XII intact and symmetrical bilaterally. 5/5 strength in all muscle groups x4 extremities. No sensory deficits. Psych: Appropriate for situation. MDM: This is an 89-year-old male patient presenting after a fall. Reassuringly, the patient is not complaining of any severe pain or injuries, though certainly I considered in my differential intracranial hemorrhage, skull fracture, cervical spine injury. I also considered metabolic and electrolyte derangements, kidney injury, anemia, vasovagal or orthostatic syndromes, arrhythmia, ACS. Will obtain a CT of the head and neck, will obtain laboratory studies to include CBC, CMP, magnesium, troponin, and an EKG. ED Course: I reviewed the patient's EKG, which shows a normal sinus rhythm with a right bundle branch block but no evidence of ischemia, arrhythmia, or excessive ectopy. Occasional PVCs appreciated. I independently interpreted the laboratory studies, which show no significant leukocytosis, does show a mild anemia but no thrombocytopenia. The chemistry panel is without evidence of electrolyte abnormality, kidney dysfunction, or liver injury. Troponin negative x 2 checks. I monitored the patient on telemetry and he did not have the development of any arrhythmias or other concerning hemodynamic findings. CT imaging of the head and spine were without acute traumatic injuries, the patient reports that he was symptom-free and road tested successfully without dizziness, or other symptoms. At this time, the patient has had a full medical evaluation and is safe for discharge to home. They are hemodynamically stable, ambulatory, and tolerating PO. They are understanding of the follow-up plan and return precautions. They left our facility without incident. Jamila Reyes MD Related Data Home Medications ?Medication ?Instructions ?Recorded ?Confirmed aspirin 81 mg tablet,delayed 81 mg PO DAILY 06/23/22 05/07/24 release triamcinolone acetonide 0.5 % 1 applic topical BID #15 grams 05/04/23 05/07/24 topical ointment gabapentin 100 mg capsule 200 mg (2 x 100 mg) PO BID #360 02/13/24 05/07/24 caps amiodarone 200 mg tablet 200 mg PO DAILY #30 tabs 03/13/24 05/07/24 atorvastatin 80 mg tablet (Lipitor) 80 mg PO HS #90 tab-caps 04/11/24 05/07/24 metoprolol tartrate 25 mg tablet 25 mg PO BID #180 tabs 04/11/24 05/07/24 terazosin 5 mg capsule 5 mg PO DAILY #90 tab-caps 05/12/24 Previous Rx's ?Medication ?Instructions ?Recorded triamcinolone acetonide 0.5 % 1 applic topical BID #15 grams 05/04/23 topical ointment gabapentin 100 mg capsule 200 mg (2 x 100 mg) PO BID #360 02/13/24 caps amiodarone 200 mg tablet 200 mg PO DAILY #30 tabs 03/13/24 atorvastatin 80 mg tablet (Lipitor) 80 mg PO HS #90 tab-caps 04/11/24 metoprolol tartrate 25 mg tablet 25 mg PO BID #180 tabs 04/11/24 terazosin 5 mg capsule 5 mg PO DAILY #90 tab-caps 05/12/24 Allergies Allergy/AdvReac Type Severity Reaction Status Date / Time codeine AdvReac DIZZY/LIGHT Verified 05/07/24 13:18 HEADED General Stated Complaint: Dizzy/Sync MIGUEL ANGEL: 3 Course Vital Signs Vital signs: Vital Signs Temperature 36.5 C 02/26/25 10:26 Pulse 50 L 05/28/24 10:26 Respiratory Rate 16 05/28/24 10:26 Blood Pressure 111/42 L 05/28/24 10: Pulse Oximetry 93 05/28/24 10:26 Temperature 36.5 C 05/28/24 10: Temperature Source Oral 05/28/24 10:26 Pulse 50 L 05/28/24 10:26 Respiratory Rate 16 05/28/24 10:26 Blood Pressure 111/42 L 05/28/24 10:26 Pulse Oximetry 93 05/28/24 10:26 Oxygen Delivery Method Room Air 05/28/24 10: Oxygen Flow Rate 0 05/28/24 10:26 Lab/Test Results Lab/Test Results: Laboratory Tests Range/Units 05/28/24 10:46 WBC (4.4-10.8) 10^3/uL 5.99 RBC (4.36-5.78) 10^6/uL 3.71 L Hgb (13.5-17.5) g/dL 11.9 L Hct (40.0-50.0) % 35.8 L MCV (80-95) fL 97 H MCH (27.0-33.0) pg 32.1 MCHC (32.0-36.0) % 33.2 RDW (11.8-14.1) % 13.5 Plt Count (130-400) 10^3/uL 155 MPV (8.0-11.0) fL 11.9 H Immature Gran % % 0.5 Neutrophils % % 61.2 Lymphocytes % % 25.2 Monocytes % % 11.4 Eosinophils % % 1.2 Basophils % % 0.5 Nucleated RBC % (0.0-0.3) % 0.0 Absolute Neutrophils (1.2-6.7) 10^3/uL 3.67 Absolute Lymphocytes (1.2-3.4) 10^3/uL 1.51 Absolute Monocytes (0.1-0.8) 10^3/uL 0.68 Absolute Eosinophils (0.0-0.7) 10^3/uL 0.07 Absolute Basophils (0.0-0.2) 10^3/uL 0.03 Sodium (136-145) mmol/L 143 Potassium (3.5-5.1) mmol/L 4.1 Chloride (98-107) mmol/L 108 H Carbon Dioxide (21.0-32.0) mmol/L 29.5 Anion Gap (3-11) mmol/L 5.5 BUN (7-18) mg/dL 26 H Creatinine (0.70-1.30) mg/dL 1.3 Est GFR (CKD-EPI 2020) (mL/min/1.73m2) 52.84 Glucose (74-106) mg/dL 102 Calcium (8.5-10.1) mg/dL 8.8 Magnesium (1.8-2.4) mg/dL 2.1 Total Bilirubin (0.2-1.0) mg/dL 0.61 AST (15-37) U/L 42 H ALT (16-63) U/L 49 Alkaline Phosphatase (46-116) U/L 103 Troponin I (<or=76) ng/L 23 Total Protein (6.4-8.2) g/dL 6.4 Albumin (3.4-5.0) g/dL 3.1 L Medical Decision Making Quality:SDOH Health Related Social Needs: No Data to Display PFSH All Active Problems (Updated 05/28/24 @ 13:28 by Jamila Reyes MD) Fall (Acute) Skin ulcer of perirectal region, limited to breakdown of skin (Acute ~05/2024) ICD (implantable cardioverter-defibrillator) in place (Chronic) [employer] place at [facility] - for hx VT Right flank pain (Chronic) High risk medications (not anticoagulants) long-term use (Chronic) amiodarone Benign prostatic hyperplasia without lower urinary tract symptoms (Chronic 07/29/12) Depressive disorder (Chronic) seasonal Essential hypertension (Chronic 01/28/13) Hyperlipidemia (Chronic 07/29/12) Hearing impairment (Chronic) Has hearing aids, managed by [facility]. CAD (coronary artery disease) (Chronic) 06/23/22 Per [facility]. -hb Moderate late onset Alzheimer's dementia without behavioral disturbance, psychotic disturbance, mood disturbance, or anxiety (Chronic) MOCA 07/23 17; 04/25 20. Seborrhea corporis (Chronic) Medical History Ventricular tachycardia (05/2022) Transferred to [facility], negative ischemia evaluation, s/p single lead ICD placement History of tobacco use Color vision deficiency red-green Carotid artery stenosis endarterectomy-left Coronary atherosclerosis of [place] coronary vessel (07/29/12) CABG 1981 AND A STENT 2009 Surgical History S/P ICD (internal cardiac defibrillator) procedure (05/2022) at [facility] History of cataract removal with insertion of prosthetic lens History of coronary artery bypass surgery Status post carotid endarterectomy Family History Mother No problems noted. Father No problems noted. Sister No problems noted. Brother No problems noted. Son No problems noted. Daughter No problems noted. Social History Smoking/Tobacco Use Status: Former Tobacco Use tobacco type: cigarettes Quit Date: 04/02/99 Second Hand Exposure: Yes Smoking risk assessment performed?: Yes Alcohol Intake: former Details: 1999 Drug use: Never Substance use type: does not use Household members: spouse Housing: house Number of Children: 8 number of grandchildren: 8 Education Level: high school current occupation: worked at a [employer] shop x 25 yrs, then worked at [employer] Pets and animals: Yes Pets and animals: cat(s) Frequency: does not exercise Yamile/Presybeterian: No preference Special yamile needs: No Do you feel safe at home: Yes Do you feel safe in your relationship?: Yes
[2024-05-28 12:45] LABS: Troponin I 22 ng/L (<or=76)
== END 2024-05-28 14:09 | disposition home or self-care (01) ==
PROVIDERS: Emergency Provider Emergency Medicine; PCP Family Medicine
DX: R42 Dizziness and giddiness (principal); I25.10 Atherosclerotic heart disease of native coronary artery without angina pectoris; I45.19 Other right bundle-branch block; I10 Essential (primary) hypertension; E78.5 Hyperlipidemia, unspecified; Z79.82 Long term (current) use of aspirin; Z95.810 Presence of automatic (implantable) cardiac defibrillator; G30.1 Alzheimer's disease with late onset; F02.B0 Dementia in other diseases classified elsewhere, moderate, without behavioral disturbance, psychotic disturbance, mood disturbance, and anxiety; Z87.891 Personal history of nicotine dependence; W08.XXXA Fall from other furniture, initial encounter; Y93.89 Activity, other specified; Y92.018 Other place in single-family (private) house as the place of occurrence of the external cause
CPT/HCPCS: 80053; 93005; 99285; 70450; 72125; 83735; 84484; 85025; 93010; 99284

== ENCOUNTER → 2024-10-28 13:28 | Outpatient (BNVA) | payer MEDICARE, SELFPAY | PROVIDERS: PCP Nurse Practitioner; Referring Provider Nurse Practitioner; Visit Provider Internal Medicine Cardiovascular Disease | DX: I25.810 Atherosclerosis of coronary artery bypass graft(s) without angina pectoris (principal); Z95.810 Presence of automatic (implantable) cardiac defibrillator; Z95.1 Presence of aortocoronary bypass graft | CPT/HCPCS: 99213 ==